=== PATIENT | male | born 1955 | race Caucasian/White ===

== ENCOUNTER 2022-02-23 06:55 | Day surgery (SDC) | payer MEDICARE ==
[2022-02-18 12:30] LABS: CLARITY,URINE CLEAR (Clear); COLOR,URINE YELLOW (Yellow); GLUCOSE, URINE >=1000 mg/dl (Neg); KETONES,URINE TRACE mg/dl (Neg); LEUKOCYTE ESTERASE ,URINE NEGATIVE (Neg); NITRITES, URINE NEGATIVE (Neg); OCCULT BLOOD,URINE NEGATIVE (Neg); PROTEIN,URINE NEGATIVE (Neg); UROBILINOGEN,URINE 0.2 E.U/dL (0.2-1.0)
[2022-02-18 12:31] LABS: BASOPHILS % (AUTO) 0.4 % (0-1); EOSINOPHILS # (AUTO) 0.2 X10'3 (0-0.9); EOSINOPHILS % (AUTO) 1.5 % (0-6); LYMPHOCYTES # (AUTO) 2.7 X10'3 (1.1-4.8); LYMPHOCYTES % (AUTO) 24.3 % (21-51); MEAN CORPUSCULAR HEMOGLOBIN 31.1 PG (27.0-31.0); MEAN CORPUSCULAR HGB CONC 33.5 g/dL (33.0-36.5); MEAN CORPUSCULAR VOLUME 92.9 FL (78-98); MEAN PLATELET VOLUME 6.4 FL (7.4-10.4); MONOCYTES # (AUTO) 0.9 X10'3 (0-0.9); MONOCYTES % (AUTO) 8.1 % (2-12); NEUTROPHILS # (AUTO) 7.4 X10'3 (1.8-7.7); NEUTROPHILS % (AUTO) 65.7 % (42-75); PRE OP HEMATOCRIT 44.3 % (42.0-52.0); PRE OP HEMOGLOBIN 14.8 g/dL (14.0-17.9); PRE OP PLATELET COUNT 386 X10'3 (140-440); RED BLOOD COUNT 4.76 X10'6 (4.70-6.10); RED CELL DISTRIBUTION WIDTH 12.9 % (11.5-14.5)
[2022-02-18 12:34] LABS: UA COLLECTION TYPE NON-SPECIFIED
[2022-02-18 12:35] LABS: BACTERIA,URINE NONE SEEN /HPF (Neg); MUCUS STRANDS NONE SEEN /LPF (Neg); RBC,URINE 0-2 /HPF (0-2); SQUAMOUS EPITHELIAL CELL,UR FEW /LPF (FEW); WBC,URINE 0-4 /HPF (0-4)
[2022-02-18 12:42] LABS: ALBUMIN 4.2 G/DL (3.4-5.0); ALBUMIN/GLOBULIN RATIO 1.2 (1.1-1.5); ALKALINE PHOSPHATASE 42 IU/L (46-116); BLOOD UREA NITROGEN 32 MG/DL (7-18); BUN/CREATININE RATIO 26.9 (5.4-32.0); CHLORIDE 100 MMOL/L (99-107); CREATININE 1.19 MG/DL (0.60-1.10); PRE OP ALT 29 U/L (30-65); PRE OP ANION GAP 9 (8-16); PRE OP AST 24 U/L (10-37); PRE OP BILIRUB, TOTAL 0.4 MG/DL (0.0-1.0); PRE OP GLUCOSE 91 MG/DL (70-104); PRE OP POTASSIUM 4.1 MMOL/L (3.4-5.1); PRE OP SODIUM 135 MMOL/L (135-145); TOTAL CARBON DIOXIDE 25.8 MMOL/L (24-32); TOTAL PROTEIN 7.6 G/DL (6.4-8.2); eGFR 62 ML/MIN
[~2022-02-23] VITALS: Ht 185.4 cm; Wt 88.9 kg
[2022-02-23] VITALS (18 sets, daily range): BP systolic 91–138; BP diastolic 56–80
[~2022-02-23 06:55] MED LIST: ASPI-611 PO; CARI-433 PO; CARV3.122 PO; DOCUMENT DATE & TIME OF BETA-BLOCKER PO ONE; DULO60CA65 PO; EMPA25TA PO; GLIM4TAB7 PO; IBUP-1986 PO; METF-1203 PO; ROSU20TA31 PO; SACU1TAB7 PO; SPIR50TA5 PO; TRAM50TA2 PO; ceFAZolin inj. 2,000 MG in dextrose 5%-water 100 ML IV ONE; famotidine 20mg tablet PO ONE; ringers solution, lacted 1,000 ML IV SCH
[2022-02-23] MEDS ORDERED: meperidine/PF 25mg/ml syringe IV PRN (09:40)
[2022-02-23] MEDS ORDERED: morphine 2 MG/ML inj. syringe IV PRN (09:40)
[2022-02-23] MEDS ORDERED: morphine 4 MG/ML inj SYRINge IV PRN (09:40)
[2022-02-23] MEDS ORDERED: HYDROmorphone/PF 0.2 MG/ML SYRINGE IV PRN ×2 (09:40)
[2022-02-23] MEDS ORDERED: hydrALAZINE 20mg/ml inj. IV PRN (09:40)
[2022-02-23] MEDS ORDERED: proCHLORperazine 10 MG/2 ml inj IV PRN (09:40)
[2022-02-23] MEDS ORDERED: ondansetron/PF 4mg/2ml inj IV PRN (09:40)
[2022-02-23] MEDS ORDERED: ringers solution, lacted 1,000 ML IV SCH (09:40)
[2022-02-23] MEDS ORDERED: acetaminophen 1,000mg/100ml IV 100 ML IV PRN (09:40)
[2022-02-23] MEDS ORDERED: labetalol 20mg/4ml (5mg/ml) syringe IV PRN (09:40)
[2022-02-23] MEDS ORDERED: BUPIVAcaine/PF 2.5 mg/ml (0.25%) 30ml vial ONE (09:48)
[2022-02-23] MEDS ORDERED: sevoflurane 250ml liquid IH ONE (10:49)
[2022-02-23] MEDS ORDERED: midazolam 1 mg/ML 2ml injection ONE (10:55)
[2022-02-23] MEDS ORDERED: dexamethasone sod phosphate 4mg/ml inj. ONE (11:05)
[2022-02-23] MEDS ORDERED: LIDOcaine 2% (20mg/ml) 5ml vial ONE (11:05)
[2022-02-23] MEDS ORDERED: ondansetron/PF 4mg/2ml inj ONE (11:05)
[2022-02-23] MEDS ORDERED: rocuronium 10mg/ml inj IV ONE (11:05)
[2022-02-23] MEDS ORDERED: fentaNYL /PF 50mcg/ml 5ml ampule ONE (11:05)
[2022-02-23] MEDS ORDERED: propofol inj 20 ML IV ONE (11:05)
[2022-02-23] MEDS ORDERED: neostigmine methylsulfate 1 MG/ML 10ml vial ONE (11:48)
[2022-02-23] MEDS ORDERED: glycopyrrolate 0.2mg/ml inj ONE (11:48)
== END 2022-02-23 15:18 | disposition home or self-care (01) ==
LOC: PAS 06:55
PROVIDERS: ATTEND Surgery
DX: K42.9 Umbilical hernia without obstruction or gangrene (principal); I10 Essential (primary) hypertension; G62.9 Polyneuropathy, unspecified; E11.9 Type 2 diabetes mellitus without complications; Z88.8 Allergy status to other drugs, medicaments and biological substances; Z98.890 Other specified postprocedural states; Z79.899 Other long term (current) drug therapy
CPT/HCPCS: 36415; 49652; 80053; 81001; 82948; 85025; 87811; 93005; C1781; J0131; J0690; J1100; J1170; J2250; J2270; J2405; J2704; J2710; J3010; J3490; J7030; J7060; J7120; Z7506; Z7508; Z7512; A4215; A4618; A7000